=== PATIENT | male | born 1985 | race Caucasian/White ===

== ENCOUNTER 2021-05-02 12:17 | Emergency (ER) | payer SELFPAY ==
[2021-05-02 12:29] VITALS: BP 163/100
[2021-05-02 14:10] LABS: EOSINOPHILS % (AUTO) 0.3 %; HCT - HEMATOCRIT 42.1 % (42.0-52.0); HGB - HEMOGLOBIN 14.1 g/dL (14.0-18.0); LYMPHOCYTES # (AUTO) 0.8 10^3/uL (1.5-3.5); LYMPHOCYTES % (AUTO) 25.8 %; MEAN CORPUSCULAR HEMOGLOBIN 32.5 pg (27.0-31.0); MEAN CORPUSCULAR HGB CONC 33.5 g/dL (32.0-36.0); MONOCYTES # (AUTO) 0.4 10^3/uL (0.0-1.0); MONOCYTES % (AUTO) 13.8 %; NEUTROPHILS # (AUTO) 1.8 10^3/uL (1.5-6.6); NEUTROPHILS % (AUTO) 59.1 %; PLT - PLATELET COUNT 269 10^3/uL (130-450); RED BLOOD COUNT 4.34 10^6/uL (4.70-6.10); RED CELL DISTRIBUTION WIDTH 13.1 % (12.0-15.0)
[2021-05-02 14:27] LABS: ALBUMIN 4.5 g/dL (3.2-5.5); ALBUMIN/GLOBULIN RATIO 1.7 (1.0-2.2); BILIRUBIN,TOTAL 0.7 mg/dL (0.2-1.0); CALCIUM 9.6 mg/dL (8.5-10.3); POTASSIUM 4.8 mmol/L (3.5-5.0); TOTAL PROTEIN 7.2 g/dL (6.7-8.2)
--- NOTE | 2021-05-02 14:43 | ED Physician Documentation ---
History of Present Illness - Stated complaint Stated Complaint: BODY SHAKING - Chief complaint Chief Complaint: General - History obtained from History obtained from: Patient - History of Present Illness Timing: How many weeks ago (3) - Additonal information Additional information: 35-year-old male with an generalized anxiety has an issue with insomnia he denie s specific depression. He has not been treated for anxiety or depression previously. He is reluctant to take pills. He does remember that he took something that his sister gave him for sleep once and this made his legs move all over the place. He does state that he has restless leg. 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 He also describes his anxiety as a shaking in his body when he is meeting new people. He started a new job and his anxiety is much worse than it has been. Review of Systems Constitutional: denies: Fever Eyes: denies: Decreased vision Ears: denies: Ear pain Nose: denies: Rhinorrhea / runny nose, Congestion Throat: denies: Sore throat Cardiac: denies: Chest pain / pressure, Palpitations Respiratory: denies: Dyspnea, Cough GI: denies: Abdominal Pain, Nausea, Vomiting, Constipation, Diarrhea : denies: Frequency Skin: denies: Rash Musculoskeletal: denies: Neck pain, Back pain, Extremity pain Neurologic: denies: Generalized weakness, Focal weakness, Numbness, Difficulty speaking Psychiatric: reports: Anxiety, Insomnia. denies: Depressed, Suicidal PD PAST MEDICAL HISTORY - Past Medical History Cardiovascular: None Respiratory: None Neuro: None Endocrine/Autoimmune: None GI: None : None HEENT: None Psych: None Musculoskeletal: None Derm: None - Past Surgical History Past Surgical History: No - Present Medications Home Medications: Ambulatory Orders Medication Instructions Recorded Confirmed traZODone [Desyrel] 50 mg PO HS #30 tablet 05/02/21 - Allergies Allergies/Adverse Reactions: Allergies Allergy/AdvReac Type Severity Reaction Status Date / Time No Known Drug Allergies Allergy Verified 05/02/21 12:21 - Social History Does the pt smoke?: Yes Smoking Status: Current every day smoker Does the pt drink ETOH?: Yes ETOH Use: Beer Does the pt have substance abuse?: No - Immunizations Immunizations are current?: No PD ED PE NORMAL - Vitals Vital signs reviewed: Yes (hpyertensive ) - General General: Alert and oriented X 3, No acute distress, Well developed/nourished - HEENT HEENT: Atraumatic, PERRL, EOMI - Neck Neck: Supple, no meningeal sign, No bony TTP - Cardiac Cardiac: RRR, No murmur - Respiratory Respiratory: No respiratory distress, Clear bilaterally - Abdomen Abdomen: Normal bowel sounds, Soft, Non tender, Non distended, No organomegaly - Back Back: No CVA TTP, No spinal TTP - Derm Derm: Normal color, Warm and dry, No rash - Extremities Extremities: No deformity, No edema - Neuro Neuro: Alert and oriented X 3, 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, No motor deficit, No sensory de ficit, Normal speech Eye Opening: Spontaneous Motor: Obeys Commands Verbal: Oriented GCS Score: 15 - Psych Psych: Normal mood, Normal affect Results - Vitals Vitals: Vital Signs - 24 hr 05/02/21 12:22 Temperature 36.2 C L Heart Rate 97 Respiratory 18 Rate Blood Pressure 163/100 H O2 Saturation 100 Oxygen O2 Source Room air - Labs Labs: Laboratory Tests 05/02/21 05/02/21 05/02/21 12:27 13:59 13:59 WBC 3.0 L RBC 4.34 L Hgb 14.1 Hct 42.1 MCV 97.0 H MCH 32.5 H MCHC 33.5 RDW 13.1 Plt Count 269 MPV 10.0 Neut # (Auto) 1.8 Lymph # (Auto) 0.8 L Barron # (Auto) 0.4 Eos # (Auto) 0.0 Baso # (Auto) 0.0 Absolute Nucleated RBC 0.00 Nucleated RBC % 0.0 Sodium 137 Potassium 4.8 Chloride 102 Carbon Dioxide 26 Anion Gap 9.0 BUN 9 Creatinine 1.0 Estimated GFR (MDRD) 86 L Glucose 106 H POC Whole Bld Glucose 147 H Calcium 9.6 Total Bilirubin 0.7 AST 65 H ALT 76 H Alkaline Phosphatase 78 Total Protein 7.2 Albumin 4.5 Globulin 2.7 Albumin/Globulin Ratio 1.7 Lipase 64 H TSH 05/02/21 13:59 WBC RBC Hgb Hct MCV MCH MCHC RDW Plt Count MPV Neut # (Auto) Lymph # (Auto) Barron # (Auto) Eos # (Auto) Baso # (Auto) Absolute Nucleated RBC Nucleated RBC % Sodium Potassium Chloride Carbon Dioxide Anion Gap BUN Creatinine Estimated GFR (MDRD) Glucose POC Whole Bld Glucose Calcium Total Bilirubin AST ALT Alkaline Phosphatase Total Protein Albumin Globulin Albumin/Globulin Ratio Lipase TSH 3.41 PD MEDICAL DECISION MAKING - ED course Complexity details: reviewed results, re-evaluated patient, considered differential, d/w patient ED course: 35-year-old male with generalized anxiety and insomnia. I discussed with the patient treatment of generalized anxiety with SSRIs and with benzodiazepine. He seems to have a problem with restless leg and I recommended against using benzodiazepine. I believe the patient will benefit from sleep regulation and I have started with this as a form of therapy for the patient and he is a he is prescribed trazodone with specific instructions on its use for sleep. I have asked patient to follow-up with the clinic for further treatment to include an SSRI for treatment of anxiety. Departure - Departure Disposition: 01 Home, Self Care Clinical Impression: Anxiety Insomnia Qualifiers: Insomnia type: unspecified Qualified Code(s): G47.00 - Insomnia, unspecified Instructions: ED Stress React, ED Insomnia Follow-Up: [facility] [Provider Group] Prescriptions: traZODone [Desyrel] 50 mg PO #30 tablet Discharge Date/Time: 05/02/21 15:50
== END 2021-05-02 15:50 | disposition home or self-care (01) ==
LOC: ED 12:17
DX: F41.9 Anxiety disorder, unspecified (principal); G47.00 Insomnia, unspecified; F17.200 Nicotine dependence, unspecified, uncomplicated
CPT/HCPCS: 36415; 80053; 83690; 84443; 85025; 99283